=== PATIENT | male | born 1995 | race Caucasian/White ===

== ENCOUNTER 2018-03-03 09:57 | Emergency (ER) | payer OTHER ==
[~2018-03-03] VITALS: Ht 185.4 cm; Wt 79.5 kg
[2018-03-03 10:19] LABS: GLUCOSE,POINT OF CARE 82 MG/DL (70-110)
[2018-03-03 10:26] VITALS: BP 105/62
== END 2018-03-03 11:49 | disposition home or self-care (01) ==
LOC: EMS 09:59
DX: J02.9 Acute pharyngitis, unspecified (principal); F17.210 Nicotine dependence, cigarettes, uncomplicated; F12.90 Cannabis use, unspecified, uncomplicated; F19.90 Other psychoactive substance use, unspecified, uncomplicated; F11.90 Opioid use, unspecified, uncomplicated; Z02.89 Encounter for other administrative examinations
CPT/HCPCS: 99282

== ENCOUNTER 2018-03-06 15:19 | Emergency (ER) | payer OTHER ==
[~2018-03-06] VITALS: Ht 182.9 cm; Wt 79.5 kg
[2018-03-06] MEDS ORDERED: IBUPROFEN 800 MG TABLET PO ONE (17:45)
[2018-03-06] MEDS ORDERED: CEPHALEXIN MONOHYDRATE 500 MG CAPSULE PO ONE (17:45)
[2018-03-06] MEDS ORDERED: SULFAMETHOX/TRIMETH DS 800-160 MG/TABLET PO ONE (17:45)
[2018-03-06 19:02] VITALS: BP 111/61
== END 2018-03-06 19:06 | disposition home or self-care (01) ==
LOC: EMS 15:20
DX: L02.31 Cutaneous abscess of buttock (principal); F17.210 Nicotine dependence, cigarettes, uncomplicated; F12.10 Cannabis abuse, uncomplicated; F15.10 Other stimulant abuse, uncomplicated; F11.10 Opioid abuse, uncomplicated
CPT/HCPCS: 99284; 99406

== ENCOUNTER 2018-03-08 10:26 | Emergency (ER) | payer OTHER ==
[~2018-03-08] VITALS: Ht 185.4 cm; Wt 75.0 kg
[2018-03-08 12:58] VITALS: BP 114/60
== END 2018-03-08 13:22 | disposition home or self-care (01) ==
LOC: EMS 10:37
DX: L02.31 Cutaneous abscess of buttock (principal); Z76.0 Encounter for issue of repeat prescription; F17.210 Nicotine dependence, cigarettes, uncomplicated; F12.10 Cannabis abuse, uncomplicated; F15.10 Other stimulant abuse, uncomplicated; F11.10 Opioid abuse, uncomplicated
CPT/HCPCS: 99283; 99406

== ENCOUNTER 2019-05-11 18:19 | Emergency (ER) | payer OTHER ==
[~2019-05-11] VITALS: Ht 182.9 cm; Wt 72.7 kg
[2019-05-11 20:26] LABS: BASOPHILS % (AUTO) 0.8 % (0.0-2.0); EOSINOPHILS % (AUTO) 5.1 % (1.0-6.0); HEMOGLOBIN 13.8 g/dL (13.5-17.5); LYMPHOCYTES # (AUTO) 2.5 K/uL (1.0-4.8); LYMPHOCYTES % (AUTO) 32.2 % (22.0-44.0); MEAN CORPUSCULAR HEMOGLOBIN 29.9 pg (26.0-34.0); MEAN CORPUSCULAR HGB CONC 32.7 G/dL (31.0-37.0); MEAN CORPUSCULAR VOLUME 91 fL (80-100); MONOCYTES # (AUTO) 1.1 K/uL (0.1-1.0); MONOCYTES % (AUTO) 13.6 % (2.0-9.0); NEUTROPHILS # (AUTO) 3.8 K/uL (1.8-7.7); NEUTROPHILS % (AUTO) 48.3 % (40.0-70.0); PLATELET COUNT (AUTO) 271 K/uL (150-450); RED CELL DISTRIBUTION WIDTH 14.2 % (11.5-14.5)
[2019-05-11 20:44] LABS: ANION GAP 4 mmol/L (8-16); CALCIUM, TOTAL 9.2 mg/dL (8.8-10.5); CARBON DIOXIDE 31 mmol/L (22-29); CHLORIDE 105 mmol/L (98-107); CREATININE 0.92 mg/dL (0.60-1.30); GLOMERULAR FILTR. RATE CALC > 60 mL/min (>60); GLUCOSE,RANDOM 94 mg/dL (70-110); POTASSIUM 4.5 mmol/L (3.5-5.1); SODIUM SERUM 140 mmol/L (136-145); UREA NITROGEN, BLOOD 11 mg/dL (7-18)
[2019-05-11 20:49] LABS: ALANINE AMINOTRANSFERASE 14 U/L (12-78); ALBUMIN 3.3 g/dL (3.4-5.0); ALKALINE PHOSPHATASE 54 U/L (46-116); ASPARTATE AMINOTRANSFERASE 18 U/L (15-37); BILIRUBIN,TOTAL 0.3 mg/dL (0.1-1.0); TOTAL PROTEIN, SERUM 7.1 g/dL (6.4-8.2)
[2019-05-11 21:35] VITALS: BP 114/60
[2019-05-11 21:44] LABS: AMPHET/METH SCREEN,URINE POSITIVE (NEGATIVE); BARBITURATE SCREEN, URINE NEGATIVE (NEGATIVE); BENZODIAZEPINES SCREEN,URINE NEGATIVE (NEGATIVE); CANNABINOID SCREEN,URINE POSITIVE (NEGATIVE); COCAINE SCREEN,URINE NEGATIVE (NEGATIVE); METHADONE SCREEN, URINE NEGATIVE (NEGATIVE); OPIATE SCREEN,URINE NEGATIVE (NEGATIVE); PHENCYCLIDINE SCREEN,URINE NEGATIVE (NEGATIVE)
== END 2019-05-11 22:04 | disposition home or self-care (01) ==
LOC: EMS 18:19
DX: B86 Scabies (principal); L98.8 Other specified disorders of the skin and subcutaneous tissue; F11.90 Opioid use, unspecified, uncomplicated; F12.90 Cannabis use, unspecified, uncomplicated; F15.90 Other stimulant use, unspecified, uncomplicated; F17.210 Nicotine dependence, cigarettes, uncomplicated
CPT/HCPCS: 36415; 80053; 80307; 85025; 99283; G0480